=== PATIENT | female | born 1935 | race Caucasian/White ===

== ENCOUNTER 2020-01-12 11:39 | Inpatient (IN) ==
[2020-01-12 15:18] LABS: BASO# 0.01 X1000 (0.0-0.2); BASO% 0.1 % (0.0-0.8); EOS# 0.07 X1000 (0.0-0.7); EOS% 0.9 % (0.0-10.0); HEMATOCRIT 39.1 % (37.0-47.0); HEMOGLOBIN 12.8 g/dL (12.0-16.0); IMM GRAN# 0.03 X1000 (0.0-0.04); IMM GRAN% 0.4 % (0.0-0.5); MCH 31.1 PG (27-31); MCHC 32.7 g/dL (33-37); MCV 95.1 FL (81-99); MONO# 0.62 X1000 (0.11-0.59); MONO% 7.7 % (1.7-9.3); MPV 11.2 FL (7.4-10.4); NEUT# 6.49 X1000 (1.4-6.5); NEUT% 80.9 % (42.2-75.2); PLT 85 X1000 (130-400); RBC 4.11 XMIL (4.2-5.4); RDW 14.5 % (11.5-14.5); WBC 8.02 X1000 (4.8-10.8)
--- NOTE | 2020-01-12 15:31 | Diag Imaging Result Doc PS360 ---
EXAM: CHEST-2 VIEWS 01/12/2020 HISTORY: SOB TECHNIQUE: AP and lateral sitting chest COMMENT: There is cardiomegaly. The appearance the chest has not changed appreciably since 12/08/2017. IMPRESSION: Cardiomegaly. Electronically signed by Kevyn Armenta 01/12/2020 3:29 PM
[2020-01-12 16:02] LABS: ALB/GLOB RATIO 1.8; ALBUMIN 4.1 g/dL (3.5-5.0); CALCIUM 9.6 mg/dL (8.8-10.2); CREATININE 1.2 mg/dL (0.5-0.9); POTASSIUM 4.7 mmol/L (3.5-5.1); TOTAL BILIRUBIN 1.66 mg/dL (0.20-1.00); TOTAL PROTEIN 6.4 g/dL (6.3-8.3)
[2020-01-12 16:20] LABS: SED RATE 1 mm/hr (0-20)
[2020-01-12 16:22] LABS: ALLEN TEST YES; BE 4.3 mmoll (-3.0-3.0); BLOOD TYPE ARTERIAL; HCO3-(ACT) 28.3 mmoll (20.0-26.0); METHB 1.4 % (0.0-1.5); MODALITY CANNULA; O2(CT) 18.1 mL/dL (15.0-23.0); O2HB 96.1 % (95.0-99.0); PCO2(98.6) 50 mmHg (35-45); PO2(98.6) 142 mmHg (60-100); SAMPLE BLOOD; SAO2 99.9 % (95.0-100.0); THB 13.2 g/dL (11.5-17.4); pH(98.6) 7.39 (7.35-7.45)
[2020-01-12] MEDS ORDERED: SAMSCA PO ONE (17:00)
[2020-01-12] MEDS ORDERED: TYLENOL PO PRN (17:36)
[2020-01-12] MEDS ORDERED: COZAAR PO ONE (20:18)
--- NOTE | 2020-01-12 20:40 | HISTORY AND PHYSICAL ---
CHIEF COMPLAINT: Altered mental status, possible UTI, swelling of legs, shortness of breath. HISTORY OF PRESENT ILLNESS: She is an 84-year-old white female living in [facility]. Was called in this morning with altered mental status, swelling of feet, and admitted to the hospital for delirium, rule out UTI. Upon arrival, sodium level 116. She is edematous, elevated JVD with decompensated systolic congestive heart failure. The patient was given Lasix and Samsca. Admitted to the hospital. Stover was placed. The son was at bedside. She does have Living Will/Do Not Resuscitate. As a result, hospital admission was warranted. PAST MEDICAL HISTORY: 1. Right breast cancer and mastectomy. 2. Chronic systolic heart failure EF 30%. 3. Pulmonary hypertension. 4. Right ventricular enlargement. 5. Left atrial enlargement with aortic stenosis. 6. Type 2 diabetes. 7. Diverticulosis. 8. Hypertension. 9. Open-angle glaucoma. 10. Hyperlipidemia. 11. Osteoporosis. 12. PAF. 13. Peptic ulcer disease. PAST SURGICAL HISTORY: 1. Open-heart surgery for atrial septal defect repair. 2. Tonsillectomy. 3. Right radical mastectomy. 4. ASD repair. 5. Bilateral cataracts. 6. Biventricular pacemaker. 7. Cholecystectomy. 8. Hysterectomy. MEDICATIONS: 1. Aldactone 25 daily. 2. Calcitonin spray 1 spray alternate nostril daily. 3. Calcium with vitamin D 1 tablet p.o. b.i.d. 4. Coreg 12.5 p.o. b.i.d. 5. Lanoxin 125 mcg daily. 6. Eliquis 2.5 p.o. b.i.d. 7. Lasix 20 mg daily. 8. Losartan 25 daily. 9. Protonix 40 daily. 10. Pravastatin 10 daily. 11. Latanoprost. 12. Macrobid. ALLERGIES: Not known. SOCIAL HISTORY: , 2 children. She is single, , and living in [facility]. No smoking. No alcohol. FAMILY HISTORY: Father at the age of 88 with heart failure. Mom of hypertension and diabetes. HEALTH MAINTENANCE: Flu vaccine 2018, pneumococcal 2014, Living Will/Do Not Resuscitate 1. REVIEW OF SYSTEMS: HEENT: No headache no vision problem. No earache. No sore throat. Neck: No goiter. No lymphadenopathy. No bruit. Cardiopulmonary: Shortness of breath, PND, orthopnea, swelling of feet. GI: No nausea, vomiting, abdominal pain. : History of hesitancy, frequency. No constipation. Neurologic: No focal symptoms or weakness. PHYSICAL EXAMINATION: VITAL SIGNS: Temperature is 98 degrees, pulse 93. Vitals are stable. 5 feet, 116 pounds. 2 L nasal cannula. GENERAL: Mild respiratory distress. HEENT: Pupils equal, reactive to light. JVD is elevated. CHEST: Bilateral air entry with crackles in the bases. HEART: Sounds are regular. ABDOMEN: Belly is soft, globular. No masses. No signs of peritonitis. EXTREMITIES: 3+ pedal edema. No obvious neurological deficits. Urine cultures are pending. CBC: White cell count 8, hematocrit 39, platelets 85,000. ABG: PH is 7.39, pCO2 50, PO2 140. Sodium 117, potassium 4.7, BUN 24, creatinine 1.2, glucose 230, bilirubin 1.6. ProBNP 3000. Free T4 is high. ASSESSMENT AND PLAN: 1. 84-year-old white female admitted to the hospital basically with altered mental status, delirium, rule out urinary tract infection. Follow up on urine culture. 2. Acute decompensated systolic heart failure associated with hyponatremia, volume overload. Fluid restrictions, daily weights, intravenous Lasix and Samsca, and follow up on daily SMA 7. 3. Elevated free T4. We will check the TSH. 4. Reconcile home medicines. 5. Living Will/Do Not Resuscitate. 6. Plan of care was given to the son and will daily monitor. cc: Oral Rose MD
[2020-01-12] MEDS: PRAVACHOL PO SCH (21:35)
[2020-01-12] MEDS: MELATONIN PO SCH (21:35)
[2020-01-12] MEDS: ELIQUIS PO SCH (21:36)
[2020-01-12] MEDS: COREG PO SCH (21:36)
[2020-01-12] MEDS: XALATAN 0.005% OPH SOLN BOTH EYES SCH (21:36)
[2020-01-12] MEDS: COSOPT OPHTH SOLN BOTH EYES SCH (21:37)
[2020-01-12] MEDS: HUMULIN R SUBQ SCH ×2 (21:37→21:45)
[2020-01-13] MEDS: HUMULIN R SUBQ SCH ×8 (06:11→21:51)
[2020-01-13] MEDS: PRILOSEC PO SCH (06:12)
[2020-01-13 06:37] LABS: BASO# 0.01 X1000 (0.0-0.2); BASO% 0.1 % (0.0-0.8); EOS# 0.07 X1000 (0.0-0.7); HEMATOCRIT 37.4 % (37.0-47.0); HEMOGLOBIN 12.2 g/dL (12.0-16.0); LYMPH# 0.88 X1000 (1.2-3.4); MCH 30.8 PG (27-31); MCHC 32.6 g/dL (33-37); MCV 94.4 FL (81-99); MONO# 0.68 X1000 (0.11-0.59); MONO% 10.1 % (1.7-9.3); MPV 10.8 FL (7.4-10.4); NEUT# 5.12 X1000 (1.4-6.5); NEUT% 75.8 % (42.2-75.2); PLT 78 X1000 (130-400); RBC 3.96 XMIL (4.2-5.4); RDW 14.5 % (11.5-14.5); WBC 6.76 X1000 (4.8-10.8)
[2020-01-13 06:55] LABS: CALCIUM 9.4 mg/dL (8.8-10.2); POTASSIUM 4.3 mmol/L (3.5-5.1)
[2020-01-13] MEDS ORDERED: SAMSCA PO ONE (08:36)
[2020-01-13] MEDS: LASIX IV SCH (08:58)
[2020-01-13] MEDS ORDERED: COZAAR PO SCH (09:00)
[2020-01-13] MEDS: ALDACTONE PO SCH (09:02)
[2020-01-13] MEDS: COREG PO SCH ×2 (09:02→20:33)
[2020-01-13] MEDS: CALTRATE 600 + D PO SCH (09:03)
[2020-01-13] MEDS: COZAAR PO SCH (09:03)
[2020-01-13] MEDS: ELIQUIS PO SCH ×2 (09:03→20:34)
[2020-01-13] MEDS: COSOPT OPHTH SOLN BOTH EYES SCH ×2 (09:04→20:34)
[2020-01-13] MEDS: MACRODANTIN PO SCH ×2 (09:09→20:34)
[2020-01-13] MEDS: FORTICAL NAS SCH (09:27)
--- NOTE | 2020-01-13 20:18 | PROGRESS NOTE ---
DATE: 01/13/2020 SUBJECTIVE: Patient breathing is better. Urine cultures gram-negative rods. She has excellent diuresis close to 950 mL. OBJECTIVE: Temperature is 97 degrees, pulse is 80. Vitals are stable, 97% on 2 L nasal cannula and JVD is elevated.Chest: Clear. Heart: Sounds are regular. Extremities: There is 1+ pedal edema. INVESTIGATIONS: White cell count 6.7, hematocrit 37.4, platelets 78,000 and SMA-7: Sodium 124, potassium 4.3, BUN 22, creatinine 1.0, glucose 143. Free T4 is elevated. Urine cultures gram- negative rods. ASSESSMENT AND PLAN: 1. Acute systolic congestive heart failure. 2. Hyponatremia due to volume overload from congestive heart failure. 3. Urinary tract infection. 4. Thrombocytopenia. 5. Type 2 diabetes. 6. Deconditioning. 7. Hyperlipidemia. 8. Osteoporosis. 9. Glaucoma. 10. Plan of care: Continue fluid restriction, daily weights, IV Lasix, Samsca 1 dose. Check the sodium levels in the morning. 11. Platelet activating factor, currently on Eliquis 2.5 p.o. b.i.d. 12. Urinary tract infection. Follow up on urine for C S and Macrobid 50 p.o. b.i.d. Free T4 is high. We will repeat the labs in the morning. TSH and free T4. Living will, DNR. Discussed the plan of care with the family and the son at bedside. LEVEL OF DOCUMENTATION: 25 minutes. cc: Oral Rose MD
[2020-01-13] MEDS: MELATONIN PO SCH (20:34)
[2020-01-13] MEDS: PRAVACHOL PO SCH (20:34)
[2020-01-13] MEDS: XALATAN 0.005% OPH SOLN BOTH EYES SCH (20:34)
[2020-01-14] MEDS: PRILOSEC PO SCH (06:13)
[2020-01-14] MEDS: HUMULIN R SUBQ SCH ×6 (06:13→21:44)
[2020-01-14 06:54] LABS: BASO# 0.02 X1000 (0.0-0.2); BASO% 0.3 % (0.0-0.8); EOS# 0.08 X1000 (0.0-0.7); EOS% 1.1 % (0.0-10.0); HEMATOCRIT 40.7 % (37.0-47.0); HEMOGLOBIN 12.6 g/dL (12.0-16.0); IMM GRAN# 0.02 X1000 (0.0-0.04); IMM GRAN% 0.3 % (0.0-0.5); LYMPH# 0.78 X1000 (1.2-3.4); LYMPH% 10.4 % (20.5-51.1); MCH 30.4 PG (27-31); MCV 98.3 FL (81-99); MONO# 0.87 X1000 (0.11-0.59); MONO% 11.6 % (1.7-9.3); MPV 10.9 FL (7.4-10.4); NEUT# 5.74 X1000 (1.4-6.5); NEUT% 76.3 % (42.2-75.2); PLT 81 X1000 (130-400); RBC 4.14 XMIL (4.2-5.4); RDW 14.7 % (11.5-14.5); WBC 7.51 X1000 (4.8-10.8)
[2020-01-14 07:20] LABS: CALCIUM 10.2 mg/dL (8.8-10.2); CREATININE 1.2 mg/dL (0.5-0.9); POTASSIUM 4.7 mmol/L (3.5-5.1)
[2020-01-14 07:33] LABS: FREE T4 1.88 ng/dL (0.93-1.70); TSH 0.9 uIUmL (0.27-4.20)
[2020-01-14] MEDS: COZAAR PO SCH (09:48)
[2020-01-14] MEDS: COREG PO SCH ×2 (09:48→20:05)
[2020-01-14] MEDS: LASIX IV SCH (09:48)
[2020-01-14] MEDS: CALTRATE 600 + D PO SCH (09:49)
[2020-01-14] MEDS: ALDACTONE PO SCH (09:49)
[2020-01-14] MEDS: FORTICAL NAS SCH (09:49)
[2020-01-14] MEDS: COSOPT OPHTH SOLN BOTH EYES SCH ×2 (09:49→20:06)
[2020-01-14] MEDS: LANOXIN PO SCH (09:50)
[2020-01-14] MEDS: ELIQUIS PO SCH ×2 (09:51→20:05)
[2020-01-14] MEDS: MACRODANTIN PO SCH ×2 (09:54→20:06)
--- NOTE | 2020-01-14 17:05 | PROGRESS NOTE ---
DATE: 01/14/2020 SUBJECTIVE: The patient is a little bit anxious to go home. Son is not at bedside, Ryan. She is feeling better and explained her numbers. OBJECTIVE: Temperature is 97.6 degrees, pulse is 80, blood pressure is 97/61, 91% room air. I's and O's -2.7 L. Weight is 116 pounds.Neck: JVD is elevated. Chest: Clear. Heart: Sounds are regular. Abdomen: Belly is soft, nontender. Genitourinary: Stover was placed. Extremities: The edema is improved. ASSESSMENT AND PLAN: 1. Systolic congestive heart failure. 2. Intermittent atrial fibrillation. 3. Urinary tract infection. 4. Sodium; hyponatremia is improving. 5. Plan of care is continue Macrobid for urinary tract infection. 6. Continue Lasix. We will hold the Samsca. 7. Physical therapy, living will DNR and hopefully will discharge back either tomorrow or Chris to [facility] and patient is anxious to go home. We will discuss with the son. LEVEL OF DOCUMENTATION: 25 minutes. cc: Oral Rose MD
[2020-01-14] MEDS: PRAVACHOL PO SCH (20:05)
[2020-01-14] MEDS: MELATONIN PO SCH (20:06)
[2020-01-14] MEDS: XALATAN 0.005% OPH SOLN BOTH EYES SCH (20:06)
[2020-01-15] MEDS: HUMULIN R SUBQ SCH ×10 (06:07→21:32)
[2020-01-15] MEDS: PRILOSEC PO SCH (06:08)
[2020-01-15 07:12] LABS: BASO# 0.02 X1000 (0.0-0.2); BASO% 0.3 % (0.0-0.8); EOS# 0.13 X1000 (0.0-0.7); EOS% 1.8 % (0.0-10.0); HEMATOCRIT 39.9 % (37.0-47.0); HEMOGLOBIN 12.4 g/dL (12.0-16.0); LYMPH# 0.89 X1000 (1.2-3.4); LYMPH% 12.5 % (20.5-51.1); MCH 30.9 PG (27-31); MCHC 31.1 g/dL (33-37); MCV 99.5 FL (81-99); MONO# 0.74 X1000 (0.11-0.59); MONO% 10.4 % (1.7-9.3); MPV 10.8 FL (7.4-10.4); NEUT# 5.36 X1000 (1.4-6.5); PLT 81 X1000 (130-400); RBC 4.01 XMIL (4.2-5.4); RDW 14.7 % (11.5-14.5); WBC 7.14 X1000 (4.8-10.8)
[2020-01-15 07:39] LABS: CALCIUM 9.5 mg/dL (8.8-10.2); CREATININE 1.2 mg/dL (0.5-0.9); POTASSIUM 4.5 mmol/L (3.5-5.1)
[2020-01-15] MEDS: LASIX IV SCH (09:53)
[2020-01-15] MEDS: COREG PO SCH ×2 (09:53→20:17)
[2020-01-15] MEDS: ALDACTONE PO SCH (09:53)
[2020-01-15] MEDS: FORTICAL NAS SCH (09:53)
[2020-01-15] MEDS: COSOPT OPHTH SOLN BOTH EYES SCH ×2 (09:53→20:17)
[2020-01-15] MEDS: ELIQUIS PO SCH ×2 (09:53→20:17)
[2020-01-15] MEDS: COZAAR PO SCH (09:53)
[2020-01-15] MEDS: CALTRATE 600 + D PO SCH (09:53)
[2020-01-15] MEDS: MACRODANTIN PO SCH ×2 (09:53→20:25)
--- NOTE | 2020-01-15 18:20 | PROGRESS NOTE ---
DATE: 01/15/2020 SUBJECTIVE: The patient is getting better and anxious to go home. We will do the paperwork tomorrow for [facility]. I spoke to the son on the telephone for more than 15 minutes about the plan of care. PHYSICAL EXAMINATION: Temperature is 98 degrees. Vitals are stable. Euvolemic. Decreased fluid retention. LABS: White cell count 7.1, hematocrit 39, platelets 81,000. SMA 7: Sodium 132, potassium 4.5, BUN 24, creatinine 1.2. Free T4 is 1.8. TSH is normal. ASSESSMENT AND PLAN: 1. Recurrent urinary tract infection. We will place on Macrobid 50 mg daily. 2. Congestive heart failure is stable. 3. Hyponatremia, better. 4. Out of the bed with physical therapy. Continue present treatment. 5. Thrombocytopenia, stable. 6. Living Will, Do Not Resuscitate. Will discharge tomorrow to [facility]. LEVEL OF DOCUMENTATION: Twenty-five minutes. cc: Oral Rose MD
[2020-01-15] MEDS: MELATONIN PO SCH (20:17)
[2020-01-15] MEDS: PRAVACHOL PO SCH (20:17)
[2020-01-15] MEDS: XALATAN 0.005% OPH SOLN BOTH EYES SCH (20:17)
[2020-01-16] MEDS: HUMULIN R SUBQ SCH ×5 (06:02→11:14)
[2020-01-16] MEDS: PRILOSEC PO SCH (06:06)
[2020-01-16] MEDS: CALTRATE 600 + D PO SCH (09:29)
[2020-01-16] MEDS: MACRODANTIN PO SCH (09:30)
[2020-01-16] MEDS: LANOXIN PO SCH (09:30)
[2020-01-16] MEDS: COSOPT OPHTH SOLN BOTH EYES SCH (09:31)
[2020-01-16] MEDS: COREG PO SCH (09:31)
[2020-01-16] MEDS: ELIQUIS PO SCH (09:31)
[2020-01-16] MEDS: COZAAR PO SCH (09:31)
[2020-01-16] MEDS: ALDACTONE PO SCH (09:31)
[2020-01-16 11:34] VITALS: BP 100/56
--- NOTE | 2020-01-17 12:20 | DISCHARGE SUMMARY ---
ADMISSION DATE: 01/12/2020 DISCHARGE DATE: 01/16/2020 DISCHARGING DIAGNOSIS: Altered mental status due to metabolic encephalopathy. SECONDARY DIAGNOSIS: 1. Hyponatremia due to volume overload due to congestive heart failure. 2. Acute systolic congestive heart failure, EF 30%, status post biventricular pacemaker. 3. Severe pulmonary hypertension. 4. Type 2 diabetes, diet controlled. 5. Diverticulosis. 6. Hypertension. 7. Open-angle glaucoma. 8. Osteoporosis. 9. Polymerase associated factor 1 10. Acid reflux disease. 11. History of right breast cancer, stable. 12. Urinary tract infection due to Escherichia coli, extended spectrum beta- lactamases negative. BRIEF HISTORY: Please see the history and physical that was done on 01/12/2020. In brief, she is an 84-year-old white female, lives in [facility], who was brought in with altered mental status associated with decompensated systolic heart failure with elevated JVD, 4+ pedal edema associated with UTI, hyponatremia. HOSPITAL COURSE: 1. Hyponatremia, is volume overload. The patient was given fluid restrictions, low-salt, daily weights, and in the meantime patient was given 2 doses of Samsca, IV Lasix. Subsequently she has had excellent diuresis about 4 L of fluid. She patient is euvolemic. 2. Recurrent UTI due to Escherichia coli started on Macrobid 50 mg p.o. b.i.d. for 7 days and once a day for chronic suppressive therapy for 1 month. 3. Diabetes, is diet controlled. 4. Chronic thrombocytopenia, stable. LABORATORY DATA: White cell count 7.1, hematocrit 39, platelets 81,000. Sodium 132, potassium 4.5, BUN 424, creatinine 1.2, glucose 75. Free T4 slightly elevated 1.8. TSH is normal. Urine cultures E. Coli sensitive to Macrobid. DISCHARGE INSTRUCTIONS: 1. Pravachol 10 mg daily, Prilosec 20 daily, losartan 25 daily, Lasix 20 mg daily,cospot 1 drop both eyes b.i.d., Coreg 12.5 p.o. b.i.d., calcium with vitamin D 1 tablet daily, melatonin 5 mg at bedtime, Tylenol as needed for pain, tizanidine 4 mg as needed for spasms, Lanoxin 125 every other day, Aldactone 25 mg daily, Linzess 72 mcg as needed, calcitonin 1 spray in each nostril, alternate daily, Xalatan 1 drop in both eyes at bedtime, Eliquis 2.5 p.o. b.i.d., Protonix 40 daily, Macrobid 50 mg p.o. b.i.d. for 7 days and then once a day for 1 month, Samsca 15 mg once a week for 1 month. Continue to monitor as an outpatient. cc: Oral Rose MD [facility]
== END 2020-01-16 15:34 | disposition home health service (06) | DRG 291 ==
LOC: DIRADM 11:39 → EDIPHOLD 14:19 → 3N 18:46
PROVIDERS: ADMIT Internal Medicine; ATTEND Internal Medicine